=== PATIENT | male | born 1980 | race Asian ===

== ENCOUNTER 2023-02-11 23:40 | Inpatient (IN) | payer BC ==
[~2023-02-11] VITALS: Ht 180.3 cm; Wt 103.9 kg
[2023-02-11 23:56] LABS: BASOPHILS ABSOLUTE AUTO 0.02 K/mm3 (0.00-0.23); BASOPHILS PERCENT AUTO 0 % (0-2); EOSINOPHILS ABSOLUTE AUTO 0.01 K/mm3 (0.00-0.68); EOSINOPHILS PERCENT AUTO 0 % (0-6); Hematocrit 40.9 % (37.0-53.0); Hemoglobin 12.8 g/dL (13.5-17.5); IMMATURE GRAN ABSOLUTE AUTO 0.02 K/mm3 (0.00-0.10); IMMATURE GRAN PERCENT AUTO 0 % (0-1); LYMPHOCYTES ABSOLUTE AUTO 0.34 K/mm3 (0.84-5.20); LYMPHOCYTES PERCENT AUTO 5 % (21-46); MONOCYTES ABSOLUTE AUTO 0.05 K/mm3 (0.16-1.47); MONOCYTES PERCENT AUTO 1 % (4-13); Mean Corpuscular HGB 20.8 pg (26.0-34.0); Mean Corpuscular HGB Conc 31.3 g/dL (31.5-36.5); Mean Corpuscular Volume 67 fL (80-100); Mean Platelet Volume 10.4 fL (9.1-12.4); NEUTROPHILS ABSOLUTE AUTO 6.68 K/mm3 (1.96-9.15); NEUTROPHILS PERCENT AUTO 94 % (41-73); Platelet Count 297 K/mm3 (150-400); RDW Coefficient Variation 16.6 % (11.7-14.2); RDW Standard Deviation 37.5 fL (35.1-46.3); Red Blood Cell Count 6.15 M/mm3 (4.30-5.90); White Blood Cell Count 7.12 K/mm3 (4.00-11.30)
[2023-02-11 23:57] LABS: Base Excess Venous -2.3 mmol/L; Bicarbonate Venous 22.2 mmol/L (24.0-30.0); PCO2 Venous 48.1 mmHg (38-42); pH Blood Venous 7.31 (7.34-7.37)
[2023-02-12] MEDS ORDERED: ALBU90OI INH (00:09)
[2023-02-12 00:18] LABS: Albumin, Blood 4.3 g/dL (3.4-5.0); Bilirubin, Total 0.9 mg/dL (0.1-1.0); Bun/Creatinine Ratio 11.1 (12.0-20.0); Calcium, Blood 8.9 mg/dL (8.5-10.1); Creatinine, Blood 0.81 mg/dL (0.60-1.20); Globulin, Blood 4.2 g/dL (2.2-4.0); Potassium, Blood 4.1 mmol/L (3.5-5.5); Total Protein, Blood 8.5 g/dL (6.4-8.2)
[2023-02-12 00:39] LABS: Influenza A, PCR NEGATIVE (NEGATIVE); Influenza B, PCR NEGATIVE (NEGATIVE); Resp Syncytial Virus, PCR NEGATIVE (NEGATIVE); SARS-Cov-2 (COVID-19) PCR, MMC NEGATIVE (NEGATIVE)
[2023-02-12 04:10] VITALS: BP 141/93
--- NOTE | 2023-02-12 05:23 | NUR ---
SHIFT SUMMARY PT IS A NEW ADMIT THIS MORNING AT 0400. HE CAME IN WITH AN ASTHMA EXACERBATION. HE WAS ON 5LNC UPON ADMISSION WITH HIS SP02 >95%. I PLACED HIM BACK ON HIS BIPAP BEAUSE HE WAS WHEEZY AND HE WAS TRYING TO SLEEP. HE HAS THE CONT PULSE OX HOOKED UP. THE PT HAS DENIED ANY ANGINA OR CHEST PRESSURE. ON TELE HE IS ST 100'S-120'S. 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 HE HAS REPORTED 4-6 ASTHMA ATTACKS IN THE LAST MONTH. FIRE IGNITION RISK AND SAFETY HAVE BEEN EVALUATED AND EDUCATION WAS PROVIDED. PT USES SNUFF OCCASIONALLY AND DENIES A NICOTINE PATCH AT THIS TIME. SEE NOTES FOR ANY UPDATES.
[2023-02-12 08:48] VITALS: BP 162/97
[2023-02-12 11:31] VITALS: BP 133/88
[2023-02-12 16:16] VITALS: BP 137/91
--- NOTE | 2023-02-12 17:00 | NUR ---
SHIFT SUMMARY PT CONTINUES TO WEAR NC TO KEEP SPO2 >90%. HE IS A&OX4 AND MAKES HIS NEEDS KNOWN, IND IN ROOM. PT STATES CHEST DOES NOT FEEL TIGHT IT DID AND HE FEELS BETTER. DENIES ANY OTHER SOURCE OF PAIN OR DISCOMFORT AND FURTHER NEEDS AT THIS TIME.
[2023-02-12 19:11] VITALS: BP 129/91
[2023-02-12 23:46] VITALS: BP 122/90
[2023-02-13 04:14] VITALS: BP 113/74
--- NOTE | 2023-02-13 05:28 | NUR ---
SHIFT SUMMARY PT A&0X4, AND IS IND IN THE ROOM. THE PT DESATURATED TO THE MID 70'S WHEN ASLEEP ON RA. HE WAS PLACED ON A CPAP AND HAS NO OTHER ISSUES WITH O2. WHEN AWWAKE THE PT IS ON RA. BP STABLE. ON TELE THE PT IS SR 60'S-70'S. FIRE IGNITION RISK HAS BEEN ASSESSED AND EDUCATION PROVIDED. PT DOES NOT SMOKE. HE OCCASIONALLY USES SNUFF.
[2023-02-13 08:24] VITALS: BP 125/85
[2023-02-13 12:10] VITALS: BP 122/72
[2023-02-13] MEDS ORDERED: DULERA 100 MCG/13 GM INH (12:23)
[2023-02-13] MEDS ORDERED: MONT10T PO (12:27)
[2023-02-13] MEDS ORDERED: Prednisone10 MG PO (12:30)
--- NOTE | 2023-02-13 12:48 | NUR ---
DISCHARGE NOTE PT EDUCATED ON THE NEED TO FOLLOW UP WITH PCP AND FOLLOW MEDICATION MANAGEMENT FOR DISEASE PROCESS AND PREVENTION OF WORSENING OF SYMPTOMS. PT STATED UNDERSTANDING AND WAS ESCORTED OUT BY RN.
== END 2023-02-13 12:45 | disposition home or self-care (01) | DRG 189 ==
LOC: ER 23:40 → PCU 23:41
PROVIDERS: Student in an Organized Health Care Education/Training Program; ADMIT Internal Medicine
PROC: 5A09357 Assistance with Respiratory Ventilation, Less than 24 Consecutive Hours, Continuous Positive Airway Pressure (ICD-10-PCS; principal; 2023-02-12)
DX: J96.01 Acute respiratory failure with hypoxia (principal); E87.29 Other acidosis; J45.901 Unspecified asthma with (acute) exacerbation; D64.9 Anemia, unspecified; F17.210 Nicotine dependence, cigarettes, uncomplicated; Z71.6 Tobacco abuse counseling; Z20.822 Contact with and (suspected) exposure to COVID-19; Z79.899 Other long term (current) drug therapy
CPT/HCPCS: 0241U; 71045; 80053; 82803; 85025; 93005; 93010; 94640; 94644; 94660; 94664; 94762; 96365; 96375; 99285-25; A9270; C9113; G0378; J1650; J2930; J3475; J7030